=== PATIENT | male | born 1965 | race Caucasian/White ===

== ENCOUNTER 2023-02-12 11:35 | Outpatient (CLI) | payer OTHER, SELFPAY | END 2023-02-12 11:36 | disposition home or self-care (01) | PROVIDERS: PCP Family Medicine; Visit Provider Family Medicine | DX: Z00.00 Encounter for general adult medical examination without abnormal findings (principal); I10 Essential (primary) hypertension; R79.89 Other specified abnormal findings of blood chemistry; R53.83 Other fatigue; Z13.6 Encounter for screening for cardiovascular disorders; Z11.59 Encounter for screening for other viral diseases | CPT/HCPCS: 80053; 80061; 84403; 86803 ==

== ENCOUNTER 2024-05-27 06:49 | Outpatient (CLI) | payer OTHER, SELFPAY | END 2024-05-27 06:50 | disposition home or self-care (01) | PROVIDERS: PCP Family Medicine; Visit Provider Family Medicine | DX: R79.89 Other specified abnormal findings of blood chemistry (principal); E78.5 Hyperlipidemia, unspecified; Z12.5 Encounter for screening for malignant neoplasm of prostate; R03.0 Elevated blood-pressure reading, without diagnosis of hypertension | CPT/HCPCS: 80053; 80061; 82043; 82570; G0103 ==